=== PATIENT | male | born 1960 | race Caucasian/White ===

== ENCOUNTER 2017-04-07 23:54 | Emergency (ER) | payer SELFPAY ==
[2017-04-08] MEDS: KETOROLAC 60 MG INJ IM (00:51)
[2017-04-08] MEDS: METHOCARBAMOL 750 MG TAB PO (01:01)
[2017-04-08 01:05] LABS: URINE PH (Dip) POC 7.5 (5.0-8.5)
[2017-04-08 01:05] LABS: URINE BLOOD (Dip) POC Negative (NEGATIVE); URINE GLUCOSE (Dip) POC Negative (NEGATIVE); URINE KETONES (Dip) POC Negative (NEGATIVE); URINE LEUKOCYTE EST (Dip) POC Negative (NEGATIVE); URINE NITRITE (Dip) POC Negative (NEGATIVE); URINE TOTAL PROTEIN POC Negative (NEGATIVE)
[2017-04-08] MEDS: morphine 10 MG INJ IV (01:24)
== END 2017-04-08 04:55 | disposition home or self-care (01) ==
LOC: E/R 23:54
DX: M54.40 Lumbago with sciatica, unspecified side (principal); M62.830 Muscle spasm of back
CPT/HCPCS: 72100; 81003; 96372; 96374; 99284-25

== ENCOUNTER 2017-04-10 12:28 | Emergency (ER) | payer MEDICAID | END 2017-04-10 12:50 | disposition home or self-care (01) | LOC: E/R 12:28 | DX: B02.9 Zoster without complications (principal) | CPT/HCPCS: 99283; Z7502 ==

== ENCOUNTER 2017-04-17 11:56 | Emergency (ER) | payer MEDICAID | END 2017-04-17 13:43 | disposition home or self-care (01) | LOC: E/R 11:56 | DX: B02.9 Zoster without complications (principal) | CPT/HCPCS: 99283; Z7502 ==